=== PATIENT | male | born 1990 | race Caucasian/White ===

== ENCOUNTER 2020-01-28 11:34 | Emergency (ER) | payer OTHER ==
[~2020-01-28] VITALS: Ht 188 cm; Wt 109.1 kg
[2020-01-28] MEDS ORDERED: DICL25TA PO (11:43)
[2020-01-28] MEDS ORDERED: NS 1,000 ML IV ONE (12:15)
[2020-01-28 12:38] LABS: BASO % 0.3 % (0.0-1.0); EOS # 0.1 10^3/uL (0.0-0.5); EOS % 1.1 % (0.0-3.0); HEMATOCRIT 44.9 % (42.0-52.0); HEMOGLOBIN 14.1 g/dl (13.5-17.5); LYMPH # 1.5 10^3/uL (1.5-5.0); LYMPH % 13.6 % (24.0-44.0); MEAN CORPUSCULAR HEMOGLOBIN 26.2 pg (27.0-33.0); MEAN CORPUSCULAR HGB CONC 31.4 g/dl (32.0-36.5); MEAN CORPUSCULAR VOLUME 83.3 fl (80.0-96.0); MONO # 0.7 10^3/uL (0.0-0.8); MONO % 6.3 % (0.0-5.0); NEUTROPHILS # 8.4 10^3/uL (1.5-8.5); NEUTROPHILS % 78.1 % (36.0-66.0); PLATELET COUNT, AUTOMATED 274 10^3/uL (150-450); RED BLOOD COUNT 5.39 10^6/uL (4.30-6.10); WHITE BLOOD COUNT 10.8 10^3/uL (4.0-10.0)
[2020-01-28 13:03] LABS: ALBUMIN 3.5 GM/DL (3.2-5.2); ALT/SGPT 24 U/L (12-78); BILIRUBIN,DIRECT 0.1 MG/DL (0.0-0.2); BILIRUBIN,TOTAL 0.4 MG/DL (0.2-1.0); BLOOD UREA NITROGEN 10 MG/DL (7-18); CALCIUM LEVEL 8.9 MG/DL (8.5-10.1); CARBON DIOXIDE LEVEL 28 MEQ/L (21-32); CHLORIDE LEVEL 106 MEQ/L (98-107); CREATININE FOR GFR 1.29 MG/DL (0.70-1.30); GLOMERULAR FILTRATION RATE > 60.0 (>60); GLUCOSE, FASTING 73 MG/DL (70-100); LIPASE 88 U/L (73-393); SODIUM LEVEL 140 MEQ/L (136-145); TOTAL PROTEIN 7.3 GM/DL (6.4-8.2)
[2020-01-28] MEDS ORDERED: ISOVUE-370 76% 100ML VIAL As Ordered ONE (13:14)
[2020-01-28] MEDS ORDERED: KETOROLAC 30 MG/ML 1ML VIAL IV ONE (13:30)
[2020-01-28 14:21] VITALS: BP 111/57
--- NOTE | 2020-01-28 14:26 | REP ---
REASON: Right lower quadrant pain. PRIORS: None. CONTRAST: 100 mL Isovue 370. The lung bases are clear. The liver, gallbladder, spleen, pancreas, adrenal glands and kidneys are within normal limits. There is no free fluid or free air in the abdomen. There are multiple borderline and enlarged lymph nodes scattered throughout the small bowel mesentery. The terminal ileum is dilated with markedly thickened gonzalez and surrounding fatty infiltration. The appendix is well visualized and is within normal limits. CT PELVIS: There is no pelvic mass or adenopathy. There is no free pelvic fluid or air. Bone window technique throughout the examination shows the osseous structures to be within normal limits. IMPRESSION: There is terminal ileitis highly suspicious for Crohn's disease. This is seen in conjunction with reactive mesenteric lymphadenopathy. Electronically Signed by Marco Antonio Caicedo DO 01/28/2020 03:06 P
== END 2020-01-28 14:43 | disposition home or self-care (01) ==
LOC: M ED 11:34
DX: K50.011 Crohn's disease of small intestine with rectal bleeding (principal); K64.9 Unspecified hemorrhoids
CPT/HCPCS: 74177; 80048; 80076; 81001; 83690; 85025; 96374; 99284; J1885; Q9967

== ENCOUNTER 2020-03-14 07:34 | Day surgery (SDC) | payer OTHER ==
[~2020-03-14] VITALS: Ht 190.5 cm; Wt 102.5 kg
[~2020-03-14 07:34] MED LIST: ACET-908 PO; DICL25TA PO; NS 1,000 ML IV ONE
[2020-03-14] MEDS ORDERED: LIDOCAINE 2% 100MG/5ML SDV (FOR ANES.) As Ordered ONE (08:39)
[2020-03-14] MEDS ORDERED: propofoL 200 MG/20 ML VIAL As Ordered ONE ×2 (08:39→09:06)
[2020-03-14] MEDS ORDERED: fentaNYL 100 MCG/2 ML INJECTION (J3010) As Ordered ONE (08:39)
--- NOTE | 2020-03-14 09:06 | ROOR ---
Patient Name: Wayne Clark Procedure Date: 03/14/2020 8:49 AM Date of : 1990 Age: 29 Room: [facility] Gender: Male Note Status: Finalized Procedure: Upper Endoscopy + Biopsies Indications: Epigastric abdominal pain Providers: Ricky Sullivan MD Referring MD: RORO KIRK MD Requesting Provider: Medicines: Monitored Anesthesia Care Complications: No immediate complications. Procedure: Pre-Anesthesia Assessment: - The heart rate, respiratory rate, oxygen saturations, blood pressure, adequacy of pulmonary ventilation, and response to care were monitored throughout the procedure. The Endoscope was introduced through the mouth, and advanced to the second part of duodenum. The upper GI endoscopy was accomplished without difficulty. The patient tolerated the procedure well. Findings: The Z-line was variable and was found 45 cm from the incisors. Multiple biopsies were obtained with cold forceps for evaluation to rule out Etienne's Esophagus randomly at the gastroesophageal junction. No other significant abnormalities were identified in a careful examination of the stomach. The exam of the duodenum was otherwise normal. Biopsies for histology were taken with a cold forceps in the first portion of the duodenum for evaluation of celiac disease. The exam was otherwise without abnormality. Impression: - Z-line variable, 45 cm from the incisors. - The examination was otherwise normal. - Multiple biopsies were obtained at the gastroesophageal junction. - Biopsies were taken with a cold forceps for evaluation of celiac disease. - The examination was otherwise normal. Recommendation: - Patient has a contact number available for emergencies. The signs and symptoms of potential delayed complications were discussed with the patient. Return to normal activities tomorrow. Written discharge instructions were provided to the patient. - High fiber diet. - Discharge patient to home. - Follow an antireflux regimen. - Continue present medications. - Await pathology results. - Telephone GI clinic for pathology results in 1 week. - Return to referring physician. - The findings and recommendations were discussed with the patient's family. Ricky Sullivan MD Ricky Sullivan MD 03/14/2020 9:05:41 AM Electronically signed by Ricky Sullivan MD Number of Addenda: 0 Note Initiated On: 03/14/2020 8:49 AM Estimated Blood Loss: Estimated blood loss: none.
--- NOTE | 2020-03-14 09:31 | ROOR ---
Patient Name: Wayne Clark Procedure Date: 03/14/2020 8:50 AM Date of : 1990 Age: 29 Room: [facility] Gender: Male Note Status: Finalized Procedure: Total Colonoscopy to Cecum + ileoscopy + Bx Indications: Chronic diarrhea, Abnormal CT of the GI tract Providers: Ricky Sullivan MD Referring MD: RORO KIRK MD Requesting Provider: Medicines: Monitored Anesthesia Care Complications: No immediate complications. Procedure: Pre-Anesthesia Assessment: - The heart rate, respiratory rate, oxygen saturations, blood pressure, adequacy of pulmonary ventilation, and response to care were monitored throughout the procedure. The Colonoscope was introduced through the anus and advanced to 8 cm into the ileum. The colonoscopy was performed without difficulty. The patient tolerated the procedure well. The quality of the bowel preparation was excellent. Findings: The perianal and digital rectal examinations were normal. Non-bleeding internal hemorrhoids were found during retroflexion. The hemorrhoids were Grade I (internal hemorrhoids that do not prolapse). No other significant abnormalities were identified in a careful examination of the remainder of the colon. Biopsies for histology were taken with a cold forceps from the ascending colon, transverse colon and descending colon for evaluation of microscopic colitis. A diffuse area of mucosa in the terminal ileum was severely altered vascular, congested, erythematous, inflamed, scarred and ulcerated. Biopsies were taken with a cold forceps for histology. The exam was otherwise without abnormality on direct and retroflexion views. Impression: - Non-bleeding internal hemorrhoids. - Altered vascular, congested, erythematous, inflamed, scarred and ulcerated mucosa in the terminal ileum. Biopsied. - The examination was otherwise normal on direct and retroflexion views. - Biopsies were taken with a cold forceps from the ascending colon, transverse colon and descending colon for evaluation of microscopic colitis. - The exam was otherwise normal to the cecum. Recommendation: - Patient has a contact number available for emergencies. The signs and symptoms of potential delayed complications were discussed with the patient. Return to normal activities tomorrow. Written discharge instructions were provided to the patient. - Discharge patient to home. - Use prednisone 20 mg PO once a day. - Return to GI office in 3 weeks. - Telephone GI clinic for pathology results in 1 week. - The findings and recommendations were discussed with the patient. Ricky Sullivan MD Ricky Sullivan MD 03/14/2020 9:30:49 AM Electronically signed by Ricky Sullivan MD Number of Addenda: 0 Note Initiated On: 03/14/2020 8:50 AM Estimated Blood Loss: Estimated blood loss: none.
[2020-03-14 09:50] VITALS: BP 131/98
== END 2020-03-14 10:04 | disposition home or self-care (01) ==
LOC: M OPP 07:34
PROVIDERS: ATTEND Internal Medicine Gastroenterology
DX: K52.9 Noninfective gastroenteritis and colitis, unspecified (principal); K63.89 Other specified diseases of intestine; K64.0 First degree hemorrhoids; K63.3 Ulcer of intestine; R93.3 Abnormal findings on diagnostic imaging of other parts of digestive tract; K22.9 Disease of esophagus, unspecified; R10.13 Epigastric pain; F17.210 Nicotine dependence, cigarettes, uncomplicated
CPT/HCPCS: 43239; 45380; 88305; J3010

== ENCOUNTER 2021-04-17 07:35 | Emergency (ER) | payer OTHER ==
[~2021-04-17] VITALS: Ht 190.5 cm; Wt 104.3 kg
[~2021-04-17 07:35] MED LIST changes: -ACET-908 PO; +ACET-910 PO; -NS 1,000 ML IV ONE
[2021-04-17] MEDS ORDERED: KETOROLAC 30 MG/ML 1ML VIAL IV ONE (08:00)
[2021-04-17] MEDS ORDERED: NS 1,000 ML IV SCH (08:00)
[2021-04-17 08:28] LABS: BASO % 0.2 % (0.0-1.0); EOS # 0.3 10^3/uL (0.0-0.5); EOS % 2.3 % (0.0-3.0); HEMATOCRIT 39.2 % (42.0-52.0); LYMPH # 1.5 10^3/uL (1.5-5.0); MEAN CORPUSCULAR HEMOGLOBIN 24.8 pg (27.0-33.0); MEAN CORPUSCULAR HGB CONC 30.6 g/dl (32.0-36.5); MONO # 0.8 10^3/uL (0.0-0.8); MONO % 6.2 % (2.0-8.0); NEUTROPHILS # 9.9 10^3/uL (1.5-8.5); NEUTROPHILS % 78.9 % (36.0-66.0); PLATELET COUNT, AUTOMATED 268 10^3/uL (150-450); RED BLOOD COUNT 4.84 10^6/uL (4.30-6.10); WHITE BLOOD COUNT 12.5 10^3/uL (4.0-10.0)
[2021-04-17] MEDS ORDERED: ISOVUE-370 76% 100ML VIAL As Ordered ONE (08:33)
[2021-04-17 08:51] LABS: ALBUMIN 3.1 GM/DL (3.2-5.2); ALT/SGPT 19 U/L (12-78); BILIRUBIN,DIRECT < 0.1 MG/DL (0.0-0.2); BILIRUBIN,TOTAL 0.1 MG/DL (0.2-1.0); LIPASE 113 U/L (73-393); TOTAL PROTEIN 6.8 GM/DL (6.4-8.2)
--- NOTE | 2021-04-17 09:14 | REP ---
INDICATION: Crohns disease - abd pain. COMPARISON: 01/28/2020 TECHNIQUE: Bolus 100 mL Isovue 370 scanning through the abdomen and pelvis with coronal and sagittal reconstructions. FINDINGS: CT abdomen/pelvis: The lung bases are clear. The heart is not enlarged there is no pericardial thickening or effusion. No hiatal hernia. The liver, gallbladder, spleen, pancreas, adrenal glands and kidneys are unremarkable. Abdominal aorta unremarkable. There is a retroaortic left renal vein which is an anatomic variation. No pathologic sized periaortic or other retroperitoneal adenopathy. There are scattered small mesenteric nodes again seen and larger mesenteric nodes near the cecum and course of the appendix.. The duodenum and jejunum are unremarkable proximally. Fluid-filled mid to distal jejunal loops noted in the proximal appendix is unremarkable. Just anterior to the right iliac vessels is irregularly-shaped and ill-defined soft tissue focus which abuts the distal appendix anteriorly. This may reflect some reaction to the ileitis and Crohn disease or periappendiceal inflammatory changes and appendicitis. Previously the appendix was well visualized and head normal periappendiceal fat along its entire course. Distal and terminal ileum show bowel wall thickening which has increased in extent. There is no sign of perforation or free air. No abdominopelvic ascites. Visualized bones unremarkable. CT pelvis: The bony sacrum, SI joints, pelvis and hips are entirely normal. The distal left colon, sigmoid and rectum unremarkable. Bladder partially filled but without wall thickening, mass or stone. The ureters in the abdomen and pelvis without dilatation or stone. There is no ventral or inguinal hernia nor pathologic sized inguinal adenopathy. No pelvic lymphadenopathy. IMPRESSION: 1. The terminal ileum and now the distal ileum show wall thickening and inflammatory changes adjacent with enhancement of the bowel wall consistent with clinical history of Crohn disease. In addition, the appendix shows some adjacent inflammatory changes along its distal course which are not present previously. No perforation, abscess or free air. These periappendiceal findings on images 95-101 axial, may reflect inflammatory changes in the adjacent ileitis and Crohn disease or inflammatory changes from the appendix itself. No perforation, abscess or obstruction. There is no intra-abdominal or pelvic ascites. Pericecal and mesenteric nodes as before. <Electronically signed by Jules Huynh > 04/17/21 [id number]
[2021-04-17] MEDS ORDERED: PRED20TA PO (10:03)
[2021-04-17 10:33] VITALS: BP 128/72
== END 2021-04-17 10:34 | disposition home or self-care (01) ==
LOC: M ED 07:35
DX: K50.918 Crohn's disease, unspecified, with other complication (principal); D64.9 Anemia, unspecified; F17.200 Nicotine dependence, unspecified, uncomplicated; J30.9 Allergic rhinitis, unspecified
CPT/HCPCS: 74177; 80047; 80076; 83690; 85025; 96361; 96374; 99284; J1885; Q9967